=== PATIENT | male | born 1935 | race Caucasian/White ===

== ENCOUNTER 2019-09-21 09:47 | Emergency (ER) | payer MEDICARE, OTHER ==
--- NOTE | 2019-09-21 10:23 | EDM.PDOC ---
ED HPI GENERAL MEDICAL PROBLEM - General Chief Complaint: General Stated Complaint: MEDICAL [facility] Time Seen by Provider: 09/21/19 10:18 Source of Information: Reports: Patient, EMS, Old Records History Limitations: Reports: Other ( not here yet, patient has some dementia so not able to articulate what is going on. ) - History of Present Illness INITIAL COMMENTS - FREE TEXT/NARRATIVE: 84 yo male with Parkinson's Dz and mild dementia who lives with his is sent into the ER for not responding normally this morning. EMS noted he had stable vitals en route and no apparent focal deficits. More awake en route. Onset: Today Onset Date: 09/21/19 Duration: Minutes:, Hour(s): (?) Location: Reports: Generalized Quality: Reports: Other (no pain reported) Severity: Moderate Improves with: Reports: Other (? time) Worsens with: Reports: Other (unknown) Context: Reports: Other (See HPI) Associated Symptoms: Reports: Confusion (chronic), Weakness. Denies: Cough, Fever/Chills, Nausea/Vomiting, Shortness of Breath Treatments HEEL BUILDER: Reports: Other (see below) (none) - Related Data Allergies Allergy/AdvReac Type Severity Reaction Status Date / Time No Known Allergies Allergy Verified 11/30/15 18:48 Home Meds: Home Meds Aspirin [Children's Aspirin] 81 mg PO DAILY 05/12/15 [History] Atenolol [Tenormin] 25 mg PO DAILY 05/12/15 [History] Cholecalciferol (Vitamin D3) [Vitamin D3] 400 units PO DAILY 05/12/15 [History] Citalopram Hydrobromide [Celexa] 30 mg PO DAILY 05/12/15 [History] Cyanocobalamin (Vitamin B-12) [Vitamin B-12] 1,000 mcg SL DAILY 05/12/15 [ History] Donepezil HCl [Aricept] 10 mg PO DAILY 05/12/15 [History] Multivitamin with Minerals [Multiple Vitamin] 1 tab PO DAILY 05/12/15 [History] Nitroglycerin [Nitrostat] 0.3 mg SL ASDIRECTED PRN 05/12/15 [History] Vits A,C,E/Lutein/Minerals [Healthy Eyes] 1 tab PO DAILY 05/12/15 [History] atorvaSTATin [Lipitor] 40 mg PO BEDTIME 05/12/15 [History] clonazePAM [Klonopin] 0.5 mg PO BEDTIME 05/12/15 [History] lisinopriL [Prinivil] 10 mg PO DAILY 05/12/15 [History] metFORMIN [Glucophage] 1,000 mg PO BIDMEALS 05/12/15 [History] rOPINIRole HCl [Requip] 0.25 mg PO TID 05/12/15 [History] Carbidopa/Levodopa [Carbidopa-Levo ER 25-100] 1 tab PO TID 11/30/15 [History] Methylphenidate [Ritalin] 5 mg PO DAILY 11/30/15 [History] Doxycycline [Vibramycin] 100 mg PO BID #18 cap 12/03/15 [Rx] Past Medical History Cardiovascular History: Reports: Cardiomyopathy, High Cholesterol, Hypertension , NM Genitourinary History: Reports: UTI, Recurrent Neurological History: Reports: Parkinson's, Other (See Below) Other Neuro History: mild dementia Psychiatric History: Reports: Anxiety, Depression Endocrine/Metabolic History: Reports: Diabetes, Type II Oncologic (Cancer) History: Reports: Other (See Below) Other Oncologic History: skin Dermatologic History: Reports: Other (See Below) Other Dermatologic History: "some type of skin cancer" - Past Surgical History Other HEENT Surgeries/Procedures: macular hole repair Cardiovascular Surgical History: Reports: Coronary Artery Bypass Male Surgical History: Reports: TURP-Transurethral Resection of Prostate Social & Family History - Family History Family Medical History: Unobtainable ED ROS GENERAL - Review of Systems Review Of Systems: Comprehensive ROS is negative, except as noted in HPI. ( patient not able to articulate concerns/problems) Constitutional: Reports: No Symptoms Neurological: Reports: Other (transient decreased level of alertness/ responsiveness) ED EXAM, GENERAL - Physical Exam Exam: See Below Exam Limited By: No Limitations General Appearance: Alert, WD/WN, No Apparent Distress, Lethargic, Thin Eye Exam: Bilateral Eye: EOMI, Normal Inspection, PERRL Ears: Normal External Exam, Normal Canal, Hearing Grossly Normal, Normal TMs Ear Exam: Bilateral Ear: Auricle Normal, Canal Normal, TM normal Nose: Normal Inspection, No Blood Throat/Mouth: Normal Lips, Normal Oropharynx, No Airway Compromise, Other (dry oral mucosa). No: Normal Voice (voice is weak) Head: Atraumatic, Normocephalic Neck: Normal Inspection Respiratory/Chest: No Respiratory Distress, Lungs Clear, Normal Breath Sounds, No Accessory Muscle Use Cardiovascular: Regular Rate, Rhythm, No Edema GI/Abdominal: Normal Bowel Sounds, Soft, Non-Tender, No Distention Extremities: Normal Inspection, Normal Range of Motion, Non-Tender, No Pedal Edema Neurological: Alert, Oriented, CN II-XII Intact, Normal Cognition, No Motor/ Sensory Deficits Psychiatric: Normal Affect, Normal Mood Skin Exam: Warm, Dry, Intact, Normal Color, No Rash Course - Vital Signs Last Recorded V/S: Last Vital Signs Temp 35.1 C L 09/21/19 11:14 Pulse 81 09/21/19 11:14 Resp 16 09/21/19 11:14 BP 118/66 09/21/19 11:14 Pulse Ox 95 09/21/19 11:14 - Orders/Labs/Meds Labs: Laboratory Tests 09/21/19 09/21/19 09/21/19 Range/Units 10:25 10:25 11:06 WBC 11.3 H (4.5-11.0) K/uL RBC 3.70 L (4.30-5.90) M/uL Hgb 11.2 L (12.0-15.0) g/dL Hct 35.7 L (40.0-54.0) % MCV 97 (80-98) fL MCH 30 (27-31) pg MCHC 31 L (32-36) % Plt Count 281 (150-400) K/uL Sodium 136 L (140-148) mmol/L Potassium 4.2 (3.6-5.2) mmol/L Chloride 98 L (100-108) mmol/L Carbon Dioxide 30 (21-32) mmol/L Anion Gap 12.2 (5.0-14.0) mmol/L BUN 13 (7-18) mg/dL Creatinine 0.7 L (0.8-1.3) mg/dL Est Cr Clr Drug Dosing 68.04 mL/min Estimated GFR (MDRD) > 60 (>60) Glucose 129 H (74-106) mg/dL Calcium 8.9 (8.5-10.1) mg/dL Total Bilirubin 0.9 (0.2-1.0) mg/dL AST 26 (15-37) U/L ALT 22 (12-78) U/L Alkaline Phosphatase 76 (46-116) U/L Troponin I < 0.017 (0.000-0.056) ng/mL Total Protein 7.3 (6.4-8.2) g/dL Albumin 2.8 L (3.4-5.0) g/dL Globulin 4.5 H (2.3-3.5) g/dL Albumin/Globulin Ratio 0.6 L (1.2-2.2) Urine Color Yellow (YELLOW) Urine Appearance Slightly cloudy A (CLEAR) Urine pH 5.5 (5.0-8.0) Ur Specific [place] 1.020 (1.008-1.030) Urine Protein Negative (NEGATIVE) mg/dL Urine Glucose (UA) Negative (NEGATIVE) mg/dL Urine Ketones Trace H (NEGATIVE) mg/dL Urine Occult Blood Negative (NEGATIVE) Urine Nitrite Negative (NEGATIVE) Urine Bilirubin Negative (NEGATIVE) Urine Urobilinogen 1.0 (0.2-1.0) EU/dL Ur Leukocyte Esterase Negative (NEGATIVE) Urine RBC 0-5 (0-5) Urine WBC 0-5 (0-5) Ur Epithelial Cells Moderate Amorphous Sediment Not seen Urine Bacteria Few Urine Mucus Not seen Meds: Medications Discontinued Medications Generic Name Dose Route Start Last Admin Trade Name [place] PRN Reason Stop Dose Admin Carbidopa/Levodopa 2 tab 09/21/19 11:08 09/21/19 11:31 Parcopa 25-100 Mg Odt PO 09/21/19 11:09 2 tab ONETIME ONE Administration - Re-Assessments/Exams Free Text/Narrative Re-Assessment/Exam: 09/21/19 12:05 Fully back to normal and ate a good lunch here in the ER. Departure - Departure Time of Disposition: 12:05 Disposition: Home, Self-Care 01 Condition: Good Clinical Impression: Normal exam - Discharge Information *PRESCRIPTION DRUG MONITORING PROGRAM REVIEWED*: No *COPY OF PRESCRIPTION DRUG MONITORING REPORT IN PATIENT MICHELET: No Referrals: PCP,None [Primary Care Provider] - Forms: ED Department Discharge Additional Instructions: Continue his current medications. Recheck as needed. Sepsis Event Note - Focused Exam Vital Signs: Vital Signs Temp Pulse Resp BP Pulse Ox 09/21/19 11:14 35.1 C L 81 16 118/66 95 09/21/19 11:06 81 16 118/66 95 09/21/19 09:51 35.1 C L 80 16 124/75 93 L Date Exam was Performed: 09/21/19 Time Exam was Performed: 12:04
[2019-09-21 11:08] VITALS: BP 118/66; PULSE 81
[2019-09-21] MEDS ORDERED: Carbidopa/Levodopa 25-100 MG Tab.DIS PO ONE (11:08)
== END 2019-09-21 12:49 | disposition home or self-care (01) ==
LOC: JP.ED 09:47
DX: Z13.30 Encounter for screening examination for mental health and behavioral disorders, unspecified (principal); I10 Essential (primary) hypertension; I25.2 Old myocardial infarction; E11.9 Type 2 diabetes mellitus without complications; Z79.899 Other long term (current) drug therapy; Z79.82 Long term (current) use of aspirin
CPT/HCPCS: 36415; 80053; 81001; 84484; 85027; 99282; 99284; A9270